=== PATIENT | female | born 1930 | race Caucasian/White ===

== ENCOUNTER 2018-03-21 08:19 | Emergency (ER) | payer BC, OTHER ==
[2018-03-21] MEDS: SOD CHLORIDE 0.9% 500 ML IV (09:30)
[2018-03-21 09:33] LABS: ADD MAN DIFF? NO
[2018-03-21 09:36] LABS: ABNORMAL IP MESSAGE 1; BASOPHILS % 0.3 % (0.0-2.0); EOSINOPHILS % 0.1 % (0.0-7.0); HEMATOCRIT 39.7 % (37.0-47.0); HEMOGLOBIN 12.6 g/dl (12.0-16.0); LYMPHOCYTES # 0.5 10^3/ul (0.8-2.9); LYMPHOCYTES % 3.9 % (15.0-51.0); MEAN CORPUSCULAR HEMOGLOBIN 32.5 pg (29.0-33.0); MEAN CORPUSCULAR HGB CONC 31.7 g/dl (32.0-37.0); MEAN CORPUSCULAR VOLUME 102.3 fl (82.0-101.0); MEAN PLATELET VOLUME 9.9 fl (7.4-10.4); MONOCYTE # 0.8 10^3/ul (0.3-0.9); NEUTROPHIL # 11.2 10^3/ul (1.6-7.5); NEUTROPHILS % 89.1 % (39.0-77.0); PLATELET COUNT 196 10^3/UL (140-415); RED BLOOD COUNT 3.88 10^6/ul (4.20-5.40); RED CELL DISTRIBUTION WIDTH 13.7 % (11.5-14.5)
[2018-03-21 09:36] LABS: WHITE BLOOD COUNT 12.6 10^3/ul (4.8-10.8)
[2018-03-21 09:37] LABS: POSITIVE DIFF @See below
[2018-03-21 10:03] LABS: ALANINE AMINOTRANSFERASE 40 IU/L (13-69); ALBUMIN 4.6 g/dl (3.3-4.9); ALBUMIN/GLOBULIN RATIO 1.58; ALKALINE PHOSPHATASE 102 IU/L (42-121); ANION GAP 15 (5-13); ASPARTATE AMINO TRANSFERASE 55 IU/L (15-46); BILIRUBIN,INDIRECT 0.6 mg/dl (0-1.1); BILIRUBIN,TOTAL 0.6 mg/dl (0.2-1.3); BLOOD UREA NITROGEN 21 mg/dl (7-20); CALCIUM 9.5 mg/dl (8.4-10.2); CARBON DIOXIDE 28 mmol/L (21-31); CHLORIDE 98 mmol/L (97-110); CREATININE 0.81 mg/dl (0.44-1.00); GLUCOSE 168 mg/dl (70-220); POTASSIUM 3.2 mmol/L (3.5-5.1); SODIUM 141 mmol/L (135-144); TOTAL PROTEIN 7.5 g/dl (6.1-8.1)
[2018-03-21] MEDS: NALOXONE (0.4 MG/ML) INJ IV (10:32)
[2018-03-21 10:42] LABS: ADD UMIC YES; UR ASCORBIC ACID NEGATIVE (NEGATIVE); UR BACTERIA FEW /HPF (NONE SEEN); UR BILIRUBIN (Dip) NEGATIVE (NEGATIVE); UR BLOOD (Dip) NEGATIVE (NEGATIVE); UR CLARITY CLEAR (CLEAR); UR COLOR STRAW (YELLOW); UR GLUCOSE (Dip) NEGATIVE (NEGATIVE); UR KETONES (Dip) NEGATIVE (NEGATIVE); UR LEUKOCYTE ESTERASE (Dip) NEGATIVE Leu/ul (NEGATIVE); UR NITRITE (Dip) NEGATIVE (NEGATIVE); UR RBC 1 /HPF (0-5); UR SPECIFIC GRAVITY (Dip) 1.008 (1.003-1.030); UR TOTAL PROTEIN (Dip) 2+ mg/dl (NEGATIVE); UR UROBILINOGEN (Dip) NEGATIVE (NEGATIVE); UR WBC 1 /HPF (0-5)
[2018-03-21] MEDS: hydrALAzine 20 MG INJ IV ×2 (11:23→14:48)
[2018-03-21] MEDS: PHYTONADIONE 10 MG in DEXTROSE 5% 50 ML IVPB (12:12)
[2018-03-21 12:19] LABS: INR 1.06; PROTIME 13.9 Sec (11.9-14.9); PT RATIO 1.1
[2018-03-21 12:20] LABS: PARTIAL THROMBOPLASTIN TIME 24.1 Sec (23.0-35.0)
[2018-03-21 13:12] LABS: LACTIC ACID 3.5 mmol/L (0.5-2.0)
[2018-03-21] MEDS: HUMAN PROTHROMBIN COMPLX IV (13:20)
[2018-03-21] MEDS: EVAC CONTAINER IV (13:20)
[2018-03-21] MEDS ORDERED: ACETAMINOPHEN 325 MG TAB PO (14:00)
[2018-03-21] MEDS: SOD CHLORIDE 0.9% 1,000 ML IV (14:47)
[2018-03-21] MEDS: DILTIAZEM-D5W 125MG/125ML DRIP 125 ML IV (15:03)
[2018-03-21] MEDS: ONDANSETRON 4 MG INJ IV (15:40)
[2018-03-21] MEDS: morphine 2 MG INJ IV (16:13)
== END 2018-03-21 20:07 | disposition home or self-care (01) ==
LOC: E/R 08:19
DX: S06.5X0A Traumatic subdural hemorrhage without loss of consciousness, initial encounter (principal); I10 Essential (primary) hypertension; X58.XXXA Exposure to other specified factors, initial encounter; Y92.9 Unspecified place or not applicable; Z79.82 Long term (current) use of aspirin; Z79.01 Long term (current) use of anticoagulants
CPT/HCPCS: 70450; 71045; 80053; 81001; 82962; 83605; 85025; 85610; 85730; 93005; 96374; 96375; 96376; 99291-25